=== PATIENT | male | born 1985 | race Caucasian/White ===

== ENCOUNTER 2020-03-04 16:07 | Outpatient (REF) | payer BC, SELFPAY | END 2020-03-04 16:08 | disposition home or self-care (01) | LOC: HO.LAB 16:07 | PROVIDERS: PCP Internal Medicine; Visit Provider Internal Medicine | DX: Z20.828 Contact with and (suspected) exposure to other viral communicable diseases (principal) | CPT/HCPCS: 36415; C9803; U0003 ==

== ENCOUNTER 2020-03-16 11:11 | Emergency (ER) | payer BC, SELFPAY ==
[2020-03-16 11:35] VITALS: BP 151/85; PULSE 90; RESP 18; TEMP 37.2; O2SAT 97; BMI 71.5
--- NOTE | 2020-03-16 11:40 | ED.URI ---
HPI - URI/Sore Throat General Chief Complaint: Upper Respiratory Symptoms Stated Complaint: bodyaches,cough Time Seen by Provider: 03/16/20 11:40 Source: patient Mode of arrival: ambulatory Limitations: no limitations History of Present Illness HPI Narrative: 35 yo male with no PMH here with cough, cold symptoms body aches x 1 day, here for COVID testing MD elicited complaint: cough and other (body aches ) Onset (ago): day(s) (1) Consistency: constant Severity: moderate Description of mucous: clear Able to tolerate fluids by mouth: Yes Exacerbating factors: nothing Relieving factors: nothing Associated symptoms: chills, myalgias, rhinorrhea and cough Treatments prior to arrival: none Related Data Allergies Allergy/AdvReac Type Severity Reaction Status Date / Time No Known Allergies Allergy Verified 03/16/20 11:35 [No Known Allergies*] Review of Systems Review of Systems: Constitutional : no Fever, positive Chills, positive fatigue, positive Malaise ENT/Mouth : positive sore throat, positive runny nose Eyes: No Discharge Cardiovascular : No Chest Pain, No SOB Respiratory : pos Cough, No Sputum Gastrointestinal : No Nausea, No Vomiting, No Diarrhea Genitourinary : No Dysuria, No Urinary Frequency Musculoskeletal : positive Myalgia Skin : No rash Neuro : No Headache PMFSH Past Medical History Attestation statement: The following information was validated with the patient. Medical History Healthy adolescent Healthy adult Social History Social History (Updated 03/16/20 @ 11:58 by Berta Salas DO) Smoking Status: Never smoker Advance Directives: No Advance Directives Information Provided: No Physical Exam Vital Signs: Vital Signs: Last Vital Signs Temp 99.0 F 03/16/20 11:35 Pulse 90 03/16/20 11:35 Resp 18 03/16/20 11:35 BP 151/85 H 03/16/20 11:35 Pulse Ox 97 03/16/20 11:35 Body Mass Index 71.5 Appearance: Alert. Oriented X3. No acute distress. Eyes: Pupils equal, round and reactive to light. ENT: Pharynx normal. Neck: Normal inspection. Neck supple. CVS: Normal heart rate and rhythm. Pulses normal. Respiratory: No respiratory distress. Breath sounds normal. Abdomen: Soft and nontender. Skin: Skin warm and dry. Normal skin color. Normal skin turgor. Extremities: No lower extremity edema. No calf ttp Neuro: Oriented X 3. No motor deficit. No sensory deficit. MDM - URI/Sore Throat MDM Narrative Medical decision making narrative: 35 yo male healthy here with URI symptoms - not toxic, clear lungs, 97% on RA - will test for COVID, overall not toxic, stable for DC Lab Data Labs: Lab Results 03/16/20 Range/Units 12:17 Coronavirus (PCR) POSITIVE A (Negative) Influenza Type A (PCR) NEGATIVE (Negative) Influenza Type B (PCR) NEGATIVE (Negative) RSV RNA Qual (PCR) NEGATIVE (Negative) Discharge Plan Discharge Clinical Impression: COVID-19 Patient Disposition: Home, Self-Care Instructions: COVID-19 (Coronavirus Disease 2019) (ED) Additional Instructions: return to ED for any worsening symptoms or concerns Stand Alone Forms: Work/School Release
[2020-03-16 13:10] LABS: Influenza A PCR NEGATIVE (Negative); Influenza B PCR NEGATIVE (Negative); Resp Syncy Virus RNA Qual PCR NEGATIVE (Negative); SARS COV2 PCR INHOUSE POSITIVE (Negative)
== END 2020-03-16 13:44 | disposition home or self-care (01) ==
PROVIDERS: Emergency Provider Emergency Medicine; PCP Internal Medicine
DX: U07.1 COVID-19 (principal)
CPT/HCPCS: 0241U; 36415; 99283

== ENCOUNTER 2020-03-27 10:46 | Outpatient (REF) | payer BC, SELFPAY ==
[2020-03-28 09:20] LABS: SARS COV2 IgG Positive (Negative)
== END 2020-03-27 10:47 | disposition home or self-care (01) ==
LOC: HO.LAB 10:46
PROVIDERS: PCP Internal Medicine; Visit Provider Internal Medicine
DX: U07.1 COVID-19 (principal)
CPT/HCPCS: 36415; 86769

== ENCOUNTER 2022-05-04 09:17 | Emergency (ER) | payer SELFPAY ==
--- NOTE | 2022-05-04 09:31 | ED_ITS ---
HPI - General Adult General Chief complaint: General Medical Stated complaint: Cough/Fever/Body aches Time Seen by Provider: 05/04/22 09:31 Source: patient Mode of arrival: ambulatory Limitations: no limitations History of Present Illness HPI narrative: Patient is a 37 year old assigned male at with no reported medical history presenting to the emergency department today with a cough and pain with urination. Patient states that he has had the cough intermittently but 2 days ago he started to have pain with urination. Patient denies any dizziness, lightheadedness, abdominal pain, nausea, vomiting, fever, chills, blurry vision, double vision, loss of vision, chest pain, difficulty breathing, shortness of breath, back pain, night sweats, increased urinary frequency, increased urinary urgency, blood in his urine or stool, syncope or a near syncopal episode, recent trauma or falls, bowel incontinence, bladder incontinence, bowel retention, bladder retention, or any other complaints at this time. Onset (ago): day(s) Severity: mild Severity scale (1-10): 2 Relieving factors: none Exacerbating factors: none Associated symptoms: denies other symptoms Treatments prior to arrival: none Related Data Previous Rx's Medication Instructions Recorded doxycycline hyclate 100 mg tablet 100 mg PO BID 7 days #14 tabs 05/04/22 Allergies Allergy/AdvReac Type Severity Reaction Status Date / Time No Known Allergies Allergy Verified 05/04/22 09:37 [No Known Allergies*] Review of Systems Constitutional: Constitutional: Reports no additional constitutional complaints, Denies chills, Denies fever(s) and Denies night sweats Eyes: Eyes: Reports no additional eye complaints, Denies blurry vision, Denies change in vision, Denies diplopia, Denies eye discharge, Denies loss of vision and Denies eye pain ENT: Denies dizziness Cardiovascular: Cardiovascular: Reports no additional cardiovascular complai nts, Denies chest pain, Denies lightheadedness, Denies Loss of Consciousness and Denies dyspnea Respiratory: Respiratory: Reports no additional respiratory complaints, Reports cough and Denies dyspnea Gastrointestinal: Gastrointestinal: Reports no additional gastrointestinal complaints, Denies abdominal pain, Denies melena, Denies hematochezia, Denies change in bowel habits and Denies change in stool character Genitourinary: Genitourinary: Reports no additional male genitourinary complaints, Denies hematuria, Denies oliguria, Denies difficulty urinating, Reports dysuria, Denies urinary frequency, Denies urinary hesitancy, Denies u rinary incontinence and Denies urinary urgency Musculoskeletal: Musculoskeletal: Reports no additional musculoskeletal complaints, Denies numbness and Denies tingling Neurologic: Denies dizziness, Denies loss of vision, Denies numbness and Denies tingling Psychiatric: Psychiatric: Reports no additional psychiatric complaints Endocrine: Endocrine: Reports no additional endocrine complaints Hematologic/Lymphatic: Hematologic/Lymphatic: Reports no additional hematologic/lymphatic complaints Allergic/Immunologic: Allergic/Immunologic: Reports no additional allergic/immunologic complaints [facility] Past Medical History Attestation statement: The following information was validated with the patient. Source: old records reviewed and nursing notes reviewed Medical History Healthy adolescent Healthy adult Surgical History History of left knee surgery Family History Family History Father Hypertension Mother No problems noted. Maternal Grandmother No problems noted. Maternal Grandfather Diabetes Son No problems noted. Daughter No problems noted. Daughter No problems noted. Paternal Grandfather Diabetes Social History Social History Alcohol intake: current Alcohol intake frequency: 0-2 drinks per day Alcohol type: beer Smoked in Last 30 Days: No Use of substances other than those prescribed or required for medical reasons: No Advance Directives: No Advance Directives Information Provided: Yes Physical Exam ED Vital Signs: Vital Signs - 24 hr 05/04/22 09:36 Temperature 98.9 F Pulse Rate 77 Respiratory Rate 18 Blood Pressure 155/79 H Pulse Oximetry 99 Oxygen Delivery Method Room Air BMI result Body Mass Index 32.4 Const General: cooperative, no acute distress, alert and awake Nutritional Appearance: well nourished Orientation/consciousness: patient oriented x3 Limitations: no limitations HENMT Head: Yes normal to inspection and Yes atraumatic Ears: hearing grossly normal bilaterally and external ears normal General nose exam: Normal external nose present, no nasal discharge noted and no epistaxis Face and sinus: Yes normal facial exam, No abrasion and No laceration Mouth: Normal oral and palatal mucosa present, no drooling and no muffled voice Eyes General: appearance normal, both eyes and all related structures Periorbital: periorbital findings normal Eyelids: Yes eyelids normal Conjunctivae: conjunctivae normal Pupils: Equal, round and reactive pupils present EOM: EOMs intact bilaterally Neck Neck: Yes normal visual inspection, Yes full ROM and Yes no lymphadenopathy Chest Chest palpation & inspection: normal inspection of the chest Resp Effort & Inspection: normal respiratory effort and able to speak in complete sentences Auscultation: clear to auscultation bilaterally Cardio Rate: regular rate Rhythm: regular rhythm GI Inspection: Yes normal to inspection Palpation (GI): Soft to palpation, not firm, nontender, no guarding and not rigid Neuro General: patient oriented x3 and moves all extremities Cranial nerves: Yes Equal, round and reactive pupils present Cognition (Neuro): normal cognition Motor exam (neuro): 5/5 motor strength present throughout Sensory Exam: Normal double simultaneous stimulation for sensation Coordination: [id number] test normal Extrem General: Yes normal to inspection, Yes full ROM and Yes capillary refill normal Psych Appearance: grossly normal Mental Status: mental status grossly normal Affect: normal affect Attitude: cooperative Thought process: Normal thought process present Thought content: Normal thought content present Insight: Good insight present (Psych) Medical Decision Making Medical Decision Making MDM Narrative: Patient is a 37 year old assigned male at with no reported medical history presenting to the emergency department today with an intermittent cough and painful urination. Patient's physical exam was unremarkable. Patient's urine showed WBC and leuks, given the patient's symptoms, will treat for STI vs. UTI. Patient's CT / NG is pending. Patient's COVID/RSV/Influenza test was negative. I explained my physical exam findings as well as all test results to the patient and the patient's . I answered all questions asked by the patient and the patient's . Patient was given IM Ceftriaxone while in the department. I stressed the importance of the patient taking his medication as prescribed. I stressed the importance of the patient following up with his primary care provider. I stressed the importance of the patient returning to the emergency department immediately if his symptoms were to worsen or if he were to develop any dizziness, shortness of breath, difficulty breathing, chest pain, blurry vision, loss of vision, nausea, vomiting, abdominal pain, fever, chills, back pain, or any other complaints. Patient and the patient's verbalized agreement and understanding with this treatment plan and discharge. Differential Diagnosis Differential Diagnoses: The differential diagnosis associated with the presentation includes dysuria, STI, UTI, viral illness Lab Data MDM Lab Attestation statement: I reviewed the patient's lab results. Labs: Lab Results 05/04/22 05/04/22 Range/Units 09:35 09:53 Urine Color ORANGE Urine Appearance Hazy Urine pH 6.0 (5.0-9.0) Ur Specific [place] 1.025 (1.005-1.025) Urine Protein 30 (1+) H (Neg-Trace) mg/dL Urine Glucose (UA) Negative (Negative) mg/dL Urine Ketones Trace (Negative) mg/dL Urine Blood Negative (Negative) Urine Nitrite Negative (Negative) Ur Leukocyte Esterase Trace H (Negative) Urine RBC 0-2 (0-2) /HPF Urine WBC >50 H (0-5) /HPF Ur Squamous Epith Cells 0-2 (0-2) /HPF Urine Bacteria None Seen (None Seen) Hyaline Casts 0-2 (0-2) /LPF Influenza Type A (PCR) NEGATIVE (Negative) Influenza Type B (PCR) NEGATIVE (Negative) RSV RNA Qual (PCR) NEGATIVE (Negative) SARS-CoV-2 RNA (RT-PCR) NEGATIVE (Negative) Independent Historian Clinical information obtained from an independent historian. History obtained from or confirmed by: Spouse Discharge Plan Discharge Clinical Impression: Dysuria, Viral illness Patient Disposition: Home, Self-Care Instructions: Dysuria (ED) Additional Instructions: Follow up with your primary care provider. Return to the emergency department immediately if your symptoms worsen or if you develop any dizziness, shortness of breath, difficulty breathing, chest pain, blurry vision, loss of vision, nausea, vomiting, abdominal pain, fever, chills, back pain, or any other complaints. Prescriptions: New doxycycline hyclate 100 mg tablet 100 mg PO BID 7 Days Qty: 14 0RF Referrals: Brittany Oden MD [Primary Care Provider] - Stand Alone Forms: Work/School Release Print Language: [place]
[2022-05-04 09:36] VITALS: BP 155/79; PULSE 77; RESP 18; TEMP 37.2; O2SAT 99; BMI 32.4
[2022-05-04 10:01] LABS: Appearance Urine Hazy; Color Urine ORANGE; Glucose Urine UA Negative (Negative); Leukocyte Esterase Urine Trace (Negative); Nitrite Urine Negative (Negative); Specific Gravity - Urine 1.025 (1.005-1.025); UMIC TRIGGER UACC YES; Urine Blood Negative (Negative); Urine Ketones Trace mg/dL (Negative); Urine Protein 30 (1+) mg/dL (Neg-Trace)
[2022-05-04 10:10] LABS: Bacteria Urine None Seen (None Seen); Hyaline Casts Urine 0-2 /LPF (0-2); RBC Urine 0-2 /HPF (0-2); Squamous Epithelial Cell Urine 0-2 /HPF (0-2); UACC Culture Trigger YES; WBC Urine >50 /HPF (0-5)
[2022-05-04 10:22] LABS: Influenza A PCR NEGATIVE (Negative); Influenza B PCR NEGATIVE (Negative); Resp Syncy Virus RNA Qual PCR NEGATIVE (Negative); SARS COV2 PCR INHOUSE NEGATIVE (Negative)
[2022-05-04] MEDS: cefTRIAXone sodium 500 MG, Lidocaine HCl 1 % MPF 1 ML IM (11:12)
[2022-05-04 11:45] LABS: CT PCR NOT DETECTED (Not Detect.); NG PCR NOT DETECTED (Not Detect.)
== END 2022-05-04 11:18 | disposition home or self-care (01) ==
PROVIDERS: Physician Assistant Medical; Emergency Provider Emergency Medicine Emergency Medical Services; PCP Internal Medicine
DX: B34.9 Viral infection, unspecified (principal); R30.0 Dysuria; D72.829 Elevated white blood cell count, unspecified; Z20.822 Contact with and (suspected) exposure to COVID-19; Z20.828 Contact with and (suspected) exposure to other viral communicable diseases
CPT/HCPCS: 0241U; 0353U; 81001; 81003; 87086; 87088; 87186; 96372; 99283; 99284; J0696

== ENCOUNTER 2023-08-10 13:04 | Outpatient (AMB) | payer BC, SELFPAY ==
--- NOTE | 2023-08-10 12:50 | A.OFFPC_ITS ---
Vital Signs 08/10/23 13:17 Height 5 ft 4.65 in Weight 204 lb BMI 34.3 BP 152/90 H Blood Pressure Location Lt brachial Position Sitting Pulse 88 Pulse Source Pulse Oximeter Temp 98.1 F Temp Source Oral Pulse Oximetry (%) 98 Oxygen Delivery Method Room Air Intake Visit Reasons: Requesting Physical Exam Intake Note: New patient visit Special Education Teaching Assistant Required: No Accompanied by: Spouse Allergies No Known Allergies [No Known Allergies*] Allergy (Verified 08/10/23 13:12) Tobacco use date assessed: 08/10/23 Dental Screening Dental Screen Date: 08/10/23 Did you have a dental visit in the last 12 months?: No Did you have a dental problem in the last 6 months where you did not have access to dental care?: No Was dental information given to patient?: Patient declined HPI Requesting Physical Exam HPI Details Patient is a 38-year-old male who presents today for a new patient visit and for a physical exam. He does speak Polish primarily but understands and speaks Hungarian with only minimal need for interpretation however, furnace packer was used today. He denies any significant past medical history. CV: Bp today in the office is 152/90. He states for the last year or so it has been elevated like this at urgent cares. No chest pain or shortness a breath. Uro: He does complain today of some erectile dysfunction and states that he is worried about his prostate. He states that he urinates frequently in wonders if he could have a prostate issue or diabetes. She does not really feel very thirsty. The increased urination has been going on for the last 6 months or so. Has a hard time maintaining an erection but does not have a hard time getting 1. He says that his libido is normal. No hematuria, discharge, or dysuria. No family history of prostate cancer. His is with him today and states that he snores a lot and gets up a lot throughout the night. He states that he is tired during the day. He drinks 1 cup of caffeine during the day to stay awake. He works 7 days a week and does have some increased stress at work. Special Education Teaching Assistant: Erin [id number] [facility] Medical History (Updated 08/10/23 @ 13:58 by Angely Roceh PA-C) COVID-19 Healthy adult Healthy adolescent Surgical History History of left knee surgery Family History (Updated 08/10/23 @ 13:18 by Aishwarya Dhillon CMA) Father HTN (hypertension) Mother No problems noted. Maternal Grandmother No problems noted. Maternal Grandfather Diabetes Son No problems noted. Daughter No problems noted. Daughter No problems noted. Paternal Grandfather Diabetes Social History (Updated 08/10/23 @ 13:15 by Aishwarya Dhillon CMA) Housing: Apartment Alcohol intake: current Alcohol intake frequency: 0-2 drinks per day Alcohol type: beer Patient Tobacco Use Status: Never used Tobacco e-Cigarette/Vaping Use: Never Used Second Hand Smoke Exposure: No service: No Current occupational status: employed Current occupation: [employer] Current occupational exposures/hazards: No Cognitive needs: No Hearing needs: No Vision needs: No Questionnaire PHQ-9 Over the last 2 weeks, how often have you been bothered by any of the following problems? 1. Little interest or pleasure in doing things: not at all 2. Feeling down, depressed, or hopeless: not at all 3. Trouble falling or staying asleep, or sleeping too much: not at all 4. Feeling tired or having little energy: not at all 5. Poor appetite or overeating: not at all 6. Feeling bad about yourself - or that you are a failure or have let yourself or your family down: not at all 7. Trouble concentrating on things, such as reading the newspaper or watching television: not at all 8. Moving or speaking so slowly that other people could have noticed. Or the opposite - being so fidgety or restless that you have been moving around a lot more than usual: not at all 9. Thoughts that you would be better off or of hurting yourself in some way: not at all Total score: 0 Depression Screening Interpretation: Negative Depression Screening Done: Yes 20269 - PHQ-9 Billing: Yes Source: Developed by Drs. Conor Quiroga, Milla Dudley, Garcia Ramsay and colleagues, with an educational melinda from [employer] ([employer]). Thrive Questionnaire Date Thrive assessed: 08/10/23 I am a: Patient What is your living situation today?: I have a steady place to live Within the past 12 months, did the food you bought not last and you didn't have the money to get more?: Never true Within the past 12 months, did you worry whether your food would run out before you got money to buy more?: Never true Do you have trouble paying for medicines?: No Do you have trouble getting transportation to medical appointments?: No Do you have trouble paying your heating and electricity bill?: No Do you have trouble taking care of your child, family member or friend?: No Do you have trouble with day-to-day activities such as bathing, preparing meals, shopping, managing finances, etc.?: No Are you currently unemployed and looking for a job?: No Are you interested in more education?: No Please select the resources that you would like help with: None Currently or been in a relationship where the following occur: no concerns reported THRIVE Score: 0 AUDIT C Alcohol Use Questionnaire (AUDIT-C) 1. How often do you have a drink containing alcohol?: 4 or more times a week 2. How many drinks containing alcohol do you have on a typical day when you are drinking?: 7 to 9 3. How often do you have six or more drinks on one occasion?: Daily or almost daily Total Score: 11 Score Reviewed/Action Taken: Yes LORETTA-7 AMB Questionnaire LROETTA-7 Date LORETTA - 7 assessed: 08/10/23 Feeling nervous, anxious, or on edge: 0 = Not at all Not being able to stop or control worryin = Not at all Worrying too much about different things: 0 = Not at all Trouble relaxin = Not at all Being so restless that it is hard to sit still: 0 = Not at all Becoming easily annoyed or irritable: 0 = Not at all Feeling afraid as if something awful might happen: 0 = Not at all Total LORETTA-7 score (0-4 normal; 5-9 mild; 10-14 moderate; 15-21 severe): 0 Source: Developed by Drs. Conor Quiroga, Milla Dudley, Garcia Ramsay and colleagues, with an educational melinda from [employer] ([employer]). LORETTA-7 Assessment Billing LORETTA-7 Assessment Tool: LORETTA-7 Assessment 40124 Physical exam (Primary Care) Vital Signs: Last Vital Signs Temp 98.1 F 08/10/23 13:17 Pulse 88 08/10/23 13:17 BP 152/90 H 08/10/23 13:17 Pulse Ox 98 08/10/23 13:17 Oxygen Delivery Method Room Air 08/10/23 13:17 BMI result Body Mass Index 34.3 BMI Assessment/Plan discussion: High BMI High, discussed plan: lifestyle, weight reduction, dietary, physical activity and alcohol moderation Tobacco/Smoking Status: Tobacco use Status Tobacco use date assessed 08/10/23 08/10/23 13:20 Patient Tobacco Use Status Never used Tobacco 08/10/23 13:20 e-Cigarette/Vaping Use Never Used 08/10/23 13:20 Depression Screening Interpretation: Negative Currently or been in a relationship where the following occur: no concerns reported Const Orientation/consciousness: patient oriented x3 HENMT Ears: hearing grossly normal bilaterally and TM's normal bilaterally General nose exam: No nasal polyps present Face and sinus: Yes sinuses nontender Mouth: Normal oral and palatal mucosa present Eyes Pupils: Equal, round and reactive pupils present EOM: EOMs intact bilaterally Neck Neck: Yes full ROM and Yes no lymphadenopathy Thyroid: Thyroid normal Chest Chest palpation & inspection: normal inspection of the chest Resp Auscultation: clear to auscultation bilaterally Cardio Rate: regular rate Rhythm: regular rhythm Heart sounds: S1 normal heart sound present and S2 normal heart sound present Peripheral pulses: Peripheral pulses 2+ throughout GI Other: Soft, nontender Auscultation: normal bowel sounds General: Yes no CVA tenderness Back/Spine/Pelvis Other: Nontender Back: no CVA tenderness Skin General skin exam: no rashes or lesions noted Neuro General: patient oriented x3, gait normal, CN's II-XI intact bilaterally and deep tendon reflexes 2+ bilaterally Cranial nerves: Yes Equal, round and reactive pupils present Motor exam (neuro): 5/5 motor strength present throughout Sensory Exam: double simultaneous stimulation for sensation normal Coordination: [id number]-[id number] test normal and Romberg test negative Extrem General: Yes normal to inspection and Yes full ROM Psych Affect: normal affect Attitude: cooperative Thought process: Normal thought process present Thought content: Normal thought content present Insight: Good insight present (Psych) Judgement: Good judgement present (Psych) Assessment and Plan Assessment & Plan (1) Routine general medical examination at a health care facility: Code(s): Z00.00 - Encounter for general adult medical examination without abnormal findings Plan: Health maintenance reviewed (2) Erectile dysfunction: Code(s): N52.9 - Male erectile dysfunction, unspecified Plan: Labs ordered today. We will follow up pending test results. Referred to Lani priest. (3) HTN (hypertension): Code(s): I10 - Essential (primary) hypertension Qualifiers: Hypertension type: primary hypertension Qualified Code(s): I10 - Essential (primary) hypertension Plan: We will start amlodipine. Discussed risks and benefits and adverse effects of this medication. Advised patient to follow up in 3-4 weeks to have blood pressure rechecked. We discussed dietary changes, need for sleep study and reducing his alcohol intake (4) Snoring: Code(s): R06.83 - Snoring Plan: Discussed avoiding ETOH. Sleep study ordered. I have encouraged weight loss. (5) Fatigue: Code(s): R53.83 - Other fatigue Plan: As above. Labs ordered. (6) Urinary frequency: Code(s): R35.0 - Frequency of micturition Plan: Labs and urine ordered Orders: Orders Vitamin B12 and Folate Today I10 - Essential (primary) hypertension, N52.9 - Male erectile dysfunction, unspecified, R06.83 - Snoring, R35.0 - Frequency of micturition, R53.83 - Other fatigue UA CC w/rflx Micro + Cult Today I10 - Essential (primary) hypertension, N52.9 - Male erectile dysfunction, unspecified, R06.83 - Snoring, R35.0 - Frequency of micturition, R53.83 - Other fatigue RT home sleep study Today I10 - Essential (primary) hypertension, R06.83 - Snoring, R53.83 - Other fatigue Comprehensive Frost. Panel Fast Today I10 - Essential (primary) hypertension, N52.9 - Male erectile dysfunction, unspecified, R06.83 - Snoring, R35.0 - Frequency of micturition, R53.83 - Other fatigue Complete Blood Count Auto Diff Today I10 - Essential (primary) hypertension, N52.9 - Male erectile dysfunction, unspecified, R06.83 - Snoring, R35.0 - Frequency of micturition, R53.83 - Other fatigue Lipid Panel Today I10 - Essential (primary) hypertension, N52.9 - Male erectile dysfunction, unspecified, R06.83 - Snoring, R35.0 - Frequency of micturition, R53.83 - Other fatigue TSH reflex Free T4 Today I10 - Essential (primary) hypertension, N52.9 - Male erectile dysfunction, unspecified, R06.83 - Snoring, R35.0 - Frequency of micturition, R53.83 - Other fatigue PSA, Ultra Sensitive Today I10 - Essential (primary) hypertension, N52.9 - Male erectile dysfunction, unspecified, R06.09 - Other forms of dyspnea, R06.83 - Snoring, R35.0 - Frequency of micturition, R53.83 - Other fatigue Hemoglobin A1c Today I10 - Essential (primary) hypertension, N52.9 - Male erectile dysfunction, unspecified, R06.83 - Snoring, R35.0 - Frequency of micturition, R53.83 - Other fatigue Referrals Urology Referral N52.9 - Male erectile dysfunction, unspecified Medications: New amlodipine 5 mg PO DAILY 90 tabs 1RF Coding Level of Care Code New Pt Prev Care 18-39yr(91639 Diagnoses Routine general medical examination at a health care facility Z00.00 Erectile dysfunction N52.9 Primary hypertension I10 Hypertension type: primary hypertension Snoring R06.83 Fatigue R53.83 Urinary frequency R35.0 Additional Codes LORETTA-7 Assessment Billing - LORETTA-7 Assessment Tool: LORETTA-7 Assessment [id number] ([id number])
[2023-08-10 13:17] VITALS: BP 152/90; PULSE 88; TEMP 36.7; O2SAT 98; BMI 34.3
== END 2023-08-10 13:48 | disposition home or self-care (01) ==
PROVIDERS: PCP Family Medicine; Visit Provider Physician Assistant
DX: Z00.00 Encounter for general adult medical examination without abnormal findings (principal); N52.9 Male erectile dysfunction, unspecified; I10 Essential (primary) hypertension; R06.83 Snoring; R53.83 Other fatigue; R35.0 Frequency of micturition
CPT/HCPCS: 99385

== ENCOUNTER 2023-08-15 07:13 | Outpatient (REF) | payer BC, SELFPAY ==
[2023-08-15 07:23] LABS: MANUAL DIFF FLAG NO
[2023-08-15 08:12] LABS: Basophils Absolute Auto 0.1 X10*3/uL (0.0-0.2); Basophils Percent Auto 1.1 % (0-2); Eosinophils Absolute Auto 0.7 X10*3/uL (0.0-0.4); Eosinophils Percent Auto 6.8 % (0-4); Hematocrit 45.7 % (42.0-52.0); Hemoglobin 15.5 g/dl (14.0-18.0); Imm Gran Abs Auto 0.16 X10*3/uL (0.00-0.03); Imm Gran Pct Auto 1.6 % (0.0-0.4); Lymphocytes Absolute Auto 2.5 X10*3/uL (1.2-4.9); Lymphocytes Percent Auto 24.4 % (20-40); Mean Corpuscular HGB Conc 33.9 g/dl (31.0-36.0); Mean Corpuscular Hemoglobin 30.6 pg (27.0-33.0); Mean Corpuscular Volume 90.1 fL (80.0-98.0); Mean Platelet Volume 9.4 fL (9.4-12.4); Neutrophils Absolute Auto 5.6 x10*3/uL (2.0-8.3); Neutrophils Percent Auto 56.1 % (45-73); Platelet Count 414 X10*3/uL (160-400); Red Blood Count 5.07 X10*6/uL (4.60-5.80)
[2023-08-15 08:15] LABS: Appearance Urine Clear; Color Urine Yellow; Glucose Urine UA Negative (Negative); Leukocyte Esterase Urine Negative (Negative); Nitrite Urine Negative (Negative); PH 5.5 (5.0-9.0); Specific Gravity - Urine 1.025 (1.005-1.025); Urine Blood Negative (Negative); Urine Ketones Negative (Negative); Urine Protein Negative (Neg-Trace)
[2023-08-15 08:26] LABS: Estimated Average Glucose 100 mg/dL; Hemoglobin A1c % 5.1 % (<6.0)
[2023-08-15 09:13] LABS: Alanine Aminotransferase 50 U/L (0-40); Albumin Level 4.5 g/dL (3.5-5.0); Alkaline Phosphatase 60 U/L (39-117); Anion Gap 14 (12-20); Aspartate Amino Transferase 40 U/L (5-37); Bilirubin Total 2.2 mg/dL (0.0-1.0); Blood Urea Nitrogen 13 mg/dL (9-16); Calcium 9.3 mg/dL (8.4-10.2); Carbon Dioxide 23 mmol/L (22-29); Chloride 107 mmol/L (96-108); Cholesterol 197 mg/dL (<200); Estimated Glomerular Filt Rate > 60; Glucose Fasting 97 mg/dL (60-99); HDL Cholesterol 60 mg/dL (>40); LDL Cholesterol Calculated 106 mg/dL (<100); Potassium 3.6 mmol/L (3.3-5.1); Sodium 140 mmol/L (135-145); Total Protein 7.8 g/dL (6.5-8.0); Triglycerides 157 mg/dL (<150)
[2023-08-15 09:28] LABS: TSH reflex Free T4 1.12 uIU/mL (0.32-4.0)
[2023-08-15 09:34] LABS: Folate 11.5 ng/mL (> or = 4.0); Vitamin B12 659 pg/mL (200-900)
== END 2023-08-15 07:14 | disposition home or self-care (01) ==
LOC: HO.LAB 07:13
PROVIDERS: PCP Physician Assistant; Visit Provider Physician Assistant
DX: R53.83 Other fatigue (principal); R06.83 Snoring; I10 Essential (primary) hypertension; N52.9 Male erectile dysfunction, unspecified; R35.0 Frequency of micturition; R06.09 Other forms of dyspnea; Z12.5 Encounter for screening for malignant neoplasm of prostate; Z13.1 Encounter for screening for diabetes mellitus
CPT/HCPCS: 36415; 80053; 80061; 81003; 82607; 82746; 83036; 84153; 84443; 85025

== ENCOUNTER 2023-09-07 08:31 | Outpatient (AMB) | payer BC, SELFPAY ==
[2023-09-07 08:43] VITALS: BP 132/68; PULSE 73; RESP 14; O2SAT 99; BMI 33.7
--- NOTE | 2023-09-07 08:43 | A.OFFPC_ITS ---
Vital Signs 09/07/23 08:43 Height 5 ft 4.65 in Weight 200 lb 4 oz BMI 33.7 BP 132/68 Blood Pressure Location Lt brachial Position Sitting Respiration 14 Pulse 73 Pulse Source Pulse Oximeter Pulse Oximetry (%) 99 Oxygen Delivery Method Room Air Intake Visit Reasons: bp f/u Intake Note: Follow up Police Or Patrol Park Officer Required: No Allergies No Known Allergies [No Known Allergies*] Allergy (Verified 09/07/23 08:43) Tobacco use date assessed: 08/10/23 Dental Screening Dental Screen Date: 08/10/23 HPI bp f/u HPI Details Patient is a 38-year-old male who presents today for a follow up. He does speak English primarily but understands and speaks Citizen [place] with only minimal need for interpretation. He declines tar man services today. His is present and speaks Citizen [place] and English. Paperwork signed. CV: Bp today in the office is 132/68. He was started at last visit on amlodipine. He states he is tolerating it well. He states that he has not yet heard about his sleep study. GI: He does admit to drinking 8 beers a night x years. He states that he can go a day or 2 without drinking alcohol and does not have any withdrawal symptoms. He states that it has just become a routine for him. He does not think he needs help with this. I did order an abdominal ultrasound and repeat labs. He states that he has not heard about the ultrasound and we will get the labs done today. Uro: He does complain today of some erectile dysfunction. He is seeing urology 09/17. We did discuss the possibility that the alcohol intake is also affecting the erectile dysfunction. [facility] Medical History (Updated 09/07/23 @ 10:29 by Angely Roche PA-C) Habitual alcohol use COVID-19 Healthy adult Healthy adolescent Surgical History History of left knee surgery Family History (Updated 08/10/23 @ 13:18 by Aishwarya Dhillon CMA) Father HTN (hypertension) Mother No problems noted. Maternal Grandmother No problems noted. Maternal Grandfather Diabetes Son No problems noted. Daughter No problems noted. Daughter No problems noted. Paternal Grandfather Diabetes Social History (Updated 08/10/23 @ 13:15 by Aishwarya Dhillon CMA) Housing: Apartment Alcohol intake: current Alcohol intake frequency: 0-2 drinks per day Alcohol type: beer Patient Tobacco Use Status: Never used Tobacco e-Cigarette/Vaping Use: Never Used Second Hand Smoke Exposure: No service: No Current occupational status: employed Current occupation: [employer] Current occupational exposures/hazards: No Cognitive needs: No Hearing needs: No Vision needs: No Questionnaire Thrive Questionnaire Date Thrive assessed: 08/10/23 LORETTA-7 AMB Questionnaire LORETTA-7 Date LORETTA - 7 assessed: 08/10/23 Source: Developed by Drs. Conor Quiroga, Milla Dudley, Garcia Ramsay and colleagues, with an educational melinda from [employer]. Physical exam (Primary Care) Vital Signs: Last Vital Signs Pulse 73 09/07/23 08:43 Resp 14 09/07/23 08:43 BP 132/68 09/07/23 08:43 Pulse Ox 99 09/07/23 08:43 Oxygen Delivery Method Room Air 09/07/23 08:43 BMI result Body Mass Index 33.7 Tobacco/Smoking Status: Tobacco use Status Tobacco use date assessed 08/10/23 09/07/23 08:45 Patient Tobacco Use Status Never used Tobacco 09/07/23 08:45 e-Cigarette/Vaping Use Never Used 09/07/23 08:45 Thrive Assessment: Date of Thrive Assessment Date Thrive assessed 08/10/23 09/07/23 08:45 Const Orientation/consciousness: patient oriented x3 HENMT Ears: hearing grossly normal bilaterally Neck Thyroid: Thyroid normal Lymphatic: no lymphadenopathy noted Resp Auscultation: clear to auscultation bilaterally Cardio Rate: regular rate Rhythm: regular rhythm Heart sounds: S1 normal heart sound present and S2 normal heart sound present GI Inspection: Yes normal to inspection Palpation (GI): Soft to palpation and Other GI palpation findings present (nontender, no cva tenderness) Auscultation: normoactive bowel sounds Rectal Exam - Male: Yes deferred Skin General skin exam: no rashes or lesions noted Neuro General: patient oriented x3, gait normal and no focal motor deficits Results Reviewed Results Reviewed: Laboratory Tests 08/15/23 07:21 Total Bilirubin 2.2 H AST 40 H ALT 50 H Triglycerides 157 H Cholesterol 197 LDL Cholesterol, Calc 106 H HDL Cholesterol 60 PSA Ultra-Sensitive 0.70 Vitamin B12 659 Folate 11.5 TSH 1.12 Assessment and Plan Assessment & Plan (1) Elevated LFTs: Code(s): R79.89 - Other specified abnormal findings of blood chemistry Plan: We discussed the possibility of this being related to his alcohol use. He is going to cut back/stopped drinking. Does not want any services for this. He does understand that there is a risk with cutting out alcohol cold [place] including increased risk of seizures/. He feels comfortable with this as he has never had withdrawal symptoms. I did send a message regarding the ultrasound to make sure that this gets booked. We will check labs today. We will follow up in a couple of months for reassessment. Sooner if needed. (2) HTN (hypertension): Code(s): I10 - Essential (primary) hypertension Qualifiers: Hypertension type: primary hypertension Qualified Code(s): I10 - Essential (primary) hypertension Plan: Continue current regimen. (3) Habitual alcohol use: Code(s): F10.90 - Alcohol use, unspecified, uncomplicated Plan: Discussed that this is likely contributing to multiple problems including elevated blood pressure, poor sleep, his liver enzymes etc.. (4) Snoring: Code(s): R06.83 - Snoring Plan: Sleep study was ordered. Message sent regarding this. Coding Level of Care Code Est Pt Level 4 (83482) Complex EM visit Add On G2211 Diagnoses Elevated LFTs R79.89 Primary hypertension I10 Hypertension type: primary hypertension Habitual alcohol use F10.90 Snoring R06.83
== END 2023-09-07 09:13 | disposition home or self-care (01) ==
PROVIDERS: PCP Family Medicine; Visit Provider Physician Assistant
DX: R79.89 Other specified abnormal findings of blood chemistry (principal); I10 Essential (primary) hypertension; F10.90 Alcohol use, unspecified, uncomplicated; R06.83 Snoring
CPT/HCPCS: 99214

== ENCOUNTER 2023-09-07 09:18 | Outpatient (REF) | payer BC, SELFPAY ==
[2023-09-07 11:33] LABS: MANUAL DIFF FLAG NO
[2023-09-07 11:41] LABS: Basophils Absolute Auto 0.1 X10*3/uL (0.0-0.2); Eosinophils Absolute Auto 0.6 X10*3/uL (0.0-0.4); Eosinophils Percent Auto 6.6 % (0-4); Hematocrit 44.4 % (42.0-52.0); Hemoglobin 14.8 g/dl (14.0-18.0); Imm Gran Pct Auto 1.2 % (0.0-0.4); Lymphocytes Absolute Auto 1.7 X10*3/uL (1.2-4.9); Lymphocytes Percent Auto 19.5 % (20-40); Mean Corpuscular HGB Conc 33.3 g/dl (31.0-36.0); Mean Corpuscular Hemoglobin 30.5 pg (27.0-33.0); Mean Corpuscular Volume 91.5 fL (80.0-98.0); Mean Platelet Volume 9.6 fL (9.4-12.4); Monocytes Absolute Auto 0.7 X10*3/uL (0.1-1.2); Monocytes Percent Auto 8.3 % (2-11); Neutrophils Absolute Auto 5.4 x10*3/uL (2.0-8.3); Neutrophils Percent Auto 63.4 % (45-73); Platelet Count 407 X10*3/uL (160-400); Red Blood Count 4.85 X10*6/uL (4.60-5.80); Red Cell Distribution Width 11.9 % (11.0-16.0); White Blood Count 8.6 X10*3/uL (4.8-10.8)
[2023-09-07 12:21] LABS: Alanine Aminotransferase 43 U/L (0-40); Albumin Level 4.3 g/dL (3.5-5.0); Alkaline Phosphatase 67 U/L (39-117); Aspartate Amino Transferase 27 U/L (5-37); Bilirubin Direct 0.4 mg/dL (0.0-0.5); Bilirubin Total 1.6 mg/dL (0.0-1.0); Gamma Glutamyl Transpeptidase 65 U/L (11-51); Total Protein 7.5 g/dL (6.5-8.0)
[2023-09-07 12:40] LABS: Hepatitis A Antibody IgG Nonreactive (Nonreactive); ~Hepatitis A Antibody IgG 0.59 S/CO (0.00-0.99)
[2023-09-07 12:41] LABS: ~HepC Num1 0.45 S/CO (0.00-0.79); ~Hepatitis B Surface Antibody REACTIVE (Nonreactive); ~Hepatitis C Antibody Nonreactive (Nonreactive)
== END 2023-09-07 09:19 | disposition home or self-care (01) ==
LOC: HO.WFDLDS 09:18
PROVIDERS: Visit Provider Physician Assistant
DX: R79.89 Other specified abnormal findings of blood chemistry (principal); R94.5 Abnormal results of liver function studies
CPT/HCPCS: 36415; 80076; 82977; 85025; 86706; 86708; 86803

== ENCOUNTER 2023-11-16 09:21 | Outpatient (AMB) | payer BC, SELFPAY ==
--- NOTE | 2023-11-16 09:28 | A.OFFPC_ITS ---
Vital Signs 11/16/23 09:29 Height 5 ft 4 in Weight 204 lb 2 oz BMI 35.0 BP 130/70 Blood Pressure Location Rt brachial Position Sitting Respiration 12 Pulse 89 Pulse Source Pulse Oximeter Temp 97.9 F Temp Source Tympanic Pulse Oximetry (%) 98 Oxygen Delivery Method Room Air Intake Visit Reasons: lab recheck, bp check Intake Note: lab review and b/p check Allergies No Known Allergies [No Known Allergies*] Allergy (Verified 11/16/23 09:28) Tobacco use date assessed: 08/10/23 Dental Screening Dental Screen Date: 08/10/23 HPI lab recheck, bp check HPI Details Patient?presents?for?follow- up?of?elevated?liver?enzymes?and?hypertension. Patient?was?started?on?amlodipine?at?a prior?visit?and blood?pressure?is?now?in?controlled?range. Liver?enzymes?have?been?elevated. Patient?notes?that?he?drinks?about?5?or?6?beers?per?evening. Patient?does?not?feel?that?he?has?a?need?to?drink?this?much and?that?he?could?decrease?this. At?his?last?visit,?his?PCP?had?ordered?a?liver?ultrasound?and?also repeat?liver?enzymes. He?has?not?gotten?his?labs? drawn?again?yet?and?he?says?no?one?has?contacted?him?regarding?liver?ultrasound. [facility] Medical History (Updated 09/07/23 @ 10:29 by Angely Roche PA-C) Habitual alcohol use COVID-19 Healthy adult Healthy adolescent Surgical History History of left knee surgery Family History (Updated 08/10/23 @ 13:18 by Aishwarya Dhillon CMA) Father HTN (hypertension) Mother No problems noted. Maternal Grandmother No problems noted. Maternal Grandfather Diabetes Son No problems noted. Daughter No problems noted. Daughter No problems noted. Paternal Grandfather Diabetes Social History (Updated 08/10/23 @ 13:15 by Aishwarya Dhillon CMA) Housing: Apartment Alcohol intake: current Alcohol intake frequency: 0-2 drinks per day Alcohol type: beer Patient Tobacco Use Status: Never used Tobacco e-Cigarette/Vaping Use: Never Used Second Hand Smoke Exposure: No service: No Current occupational status: employed Current occupation: [employer] Current occupational exposures/hazards: No Cognitive needs: No Hearing needs: No Vision needs: No Questionnaire Thrive Questionnaire Date Thrive assessed: 08/10/23 LORETTA-7 AMB Questionnaire LORETTA-7 Date LORETTA - 7 assessed: 08/10/23 Source: Developed by Drs. Conor Quiroga, Milla Dudley, Garcia Ramsay and colleagues, with an educational melinda from [employer]. Review of Systems Const Denies chills, Denies fatigue, Denies fever(s), Denies headache(s) and Denies weakness ENT Denies dizziness and Denies headache(s) Card Denies chest pain, Denies lightheadedness, Denies dyspnea and Denies other (Palpitations) Resp Denies cough, Denies dyspnea, Denies wheezing and Denies other ( shortness of breath) Musc Denies numbness and Denies tingling Neuro Denies dizziness, Denies headache(s), Denies numbness, Denies tingling, Denies paresthesias and Denies weakness Psych Denies anxiety and Denies depression Endo Denies fatigue Aller/Immun Denies wheezing Physical exam (Primary Care) Vital Signs: Last Vital Signs Temp 97.9 F 11/16/23 09:29 Pulse 89 11/16/23 09:29 Resp 12 11/16/23 09:29 BP 130/70 11/16/23 09:29 Pulse Ox 98 11/16/23 09:29 Oxygen Delivery Method Room Air 11/16/23 09:29 BMI result Body Mass Index 35.0 Tobacco/Smoking Status: Tobacco use Status Tobacco use date assessed 08/10/23 11/16/23 09:32 Patient Tobacco Use Status Never used Tobacco 11/16/23 09:32 e-Cigarette/Vaping Use Never Used 11/16/23 09:32 Thrive Assessment: Date of Thrive Assessment Date Thrive assessed 08/10/23 11/16/23 09:32 Const General: no acute distress and well developed Nutritional Appearance: well nourished Orientation/consciousness: patient oriented x3 HENMT Head: Yes normocephalic and Yes atraumatic Eyes General: appearance normal, both eyes and all related structures Pupils: Equal, round and reactive pupils present EOM: EOMs intact bilaterally Resp Effort & Inspection: normal respiratory effort Auscultation: clear to auscultation bilaterally Cardio Rate: regular rate Rhythm: regular rhythm Heart sounds: S1 normal heart sound present, S2 normal heart sound present, no gallops, no murmurs and no rubs Neuro General: patient oriented x3 and gait normal Cranial nerves: Yes Equal, round and reactive pupils present Psych Affect: normal affect Assessment and Plan Assessment & Plan (1) Elevated LFTs: Code(s): R79.89 - Other specified abnormal findings of blood chemistry Plan: Elevated?liver?enzymes?and?patient?notes?that?he?drinks?about?5?or?6?beers?per?e vening. He?does?not?feel?that?he?has?not?need?to?drink?that?much. Advised?him?to?wean?this?down?with?a?goal?of?eventually?stopping. Increase?water/hydration Work?at?weight?loss. Avoid?Tylenol. Patient?has?not?gotten?his?blood?redrawn?yet?but?it?would?likely?not?be?signific antly ?changed?as?he?has?not?made?lifestyle?changes.??Will?have?patient?work?on?these? lifestyle?changes?for?the?next?6?weeks?and?then?he?will?get?his?blood?drawn. He?will?follow-up?with?his?PCP?in?a?couple?of?months (2) HTN (hypertension): Code(s): I10 - Essential (primary) hypertension Qualifiers: Hypertension type: primary hypertension Qualified Code(s): I10 - Essential (primary) hypertension Plan: Blood?pressure?is?controlled.??Goal?is?less?than?140/90 Continue?current?medication Encouraged?weight?loss Coding Level of Care Code Est Pt Level 3 (25207) Diagnoses Elevated LFTs R79.89 Primary hypertension I10 Hypertension type: primary hypertension
[2023-11-16 09:29] VITALS: BP 130/70; PULSE 89; RESP 12; TEMP 36.6; O2SAT 98; BMI 35.0
== END 2023-11-16 09:55 | disposition home or self-care (01) ==
PROVIDERS: PCP Physician Assistant; Visit Provider Family Medicine
DX: R79.89 Other specified abnormal findings of blood chemistry (principal); I10 Essential (primary) hypertension

== ENCOUNTER → 2023-11-16 09:21 | Outpatient (BNVA) | payer BC, SELFPAY | PROVIDERS: PCP Physician Assistant; Visit Provider Family Medicine | DX: R79.89 Other specified abnormal findings of blood chemistry (principal); I10 Essential (primary) hypertension ==

== ENCOUNTER 2024-08-25 08:35 | Emergency (ER) | payer BC, SELFPAY ==
[2024-08-25 08:37] VITALS: BP 138/86; PULSE 79; RESP 16; TEMP 36.9; O2SAT 98; BMI 33.3
[2024-08-25] MEDS: Amoxicillin/Potassium Clav 875 MG TABLET PO (09:13)
[2024-08-25 09:24] VITALS: BP 148/63; PULSE 64; RESP 15; TEMP 37; O2SAT 100
--- NOTE | 2024-08-25 09:29 | ED.EAR ---
HPI - Ear Problem General Chief complaint: Ear Problems Stated complaint: ear pain Time Seen by Provider: 08/25/24 08:46 Source: patient Mode of arrival: ambulatory Limitations: no limitations History of Present Illness ED Provider: DR. Carpio HPI Narrative: 39-year-old male came in for evaluation of left ear pain since yesterday, patient for the last 3 days been having runny nose, bilateral eye discharge with eye redness, nonproductive cough No sick contacts, no fever, no chills. Related Data Previous Rx's ?Medication ?Instructions ?Recorded amlodipine 5 mg tablet 5 mg PO DAILY #90 tabs 02/05/24 amoxicillin 875 mg-potassium 1 tab PO BID #14 tabs 08/25/24 clavulanate 125 mg tablet erythromycin 5 mg/gram (0.5 %) eye 1 appl ophthalmic (eye) TID #50 08/25/24 ointment grams Allergies Allergy/AdvReac Type Severity Reaction Status Date / Time No Known Allergies (No Known Allergy Verified 08/25/24 08:40 Allergies*) Review of Systems Review of Systems: all other systems are reviewed and are negative Constitutional: Reports as per HPI and Reports no additional constitutional complaints Eyes: Reports as per HPI and Reports no additional eye complaints Reports system reviewed and no additional complaints, except as documented Cardiovascular: Reports as per HPI and Reports no additional cardiovascular complaints Respiratory: Reports as per HPI and Reports no additional respiratory complaints Gastrointestinal: Reports as per HPI and Reports no additional gastrointestinal complaints Genitourinary: Reports no additional female genitourinary complaints Musculoskeletal: Reports no additional musculoskeletal complaints Skin/Breast: Reports system reviewed and no additional complaints, except as docu Psychiatric: Reports no additional psychiatric complaints Endocrine: Reports no additional endocrine complaints Hematologic/Lymphatic: Reports no additional hematologic/lymphatic complaints Allergic/Immunologic: Reports no additional allergic/immunologic complaints Reports system reviewed and no additional complaints, except as documented and Reports Abnormal speech present COUNT INCLUDES THE [facility] Past Medical History Medical History Habitual alcohol use COVID-19 Healthy adult Healthy adolescent Surgical History History of left knee surgery Family History Family History Father HTN (hypertension) Mother No problems noted. Maternal Grandmother No problems noted. Maternal Grandfather Diabetes Son No problems noted. Daughter No problems noted. Daughter No problems noted. Paternal Grandfather Diabetes Social History Social History Housing: Apartment Alcohol intake: current Alcohol intake frequency: a few times a week Alcohol type: beer Patient Tobacco Use Status: Never used Tobacco e-Cigarette/Vaping Use: Never Used Second Hand Smoke Exposure: No service: No Current occupational status: employed Current occupation: [employer] Current occupational exposures/hazards: No Cognitive needs: No Hearing needs: No Vision needs: No Physical Exam Vital Signs: Vital Signs: Last Vital Signs Temp 98.6 F 08/25/24 09:24 Pulse 64 08/25/24 09:24 Resp 15 08/25/24 09:24 BP 148/63 H 08/25/24 09:24 Pulse Ox 100 08/25/24 09:24 O2 Del Method Room Air 08/25/24 09:24 BMI result Body Mass Index 33.3 Vital signs have been reviewed and appear to be correct. Blood pressure elevated. Heart rate normal. Respiratory rate normal. Temperature normal. Oxygen saturation normal. Appearance: Alert. Oriented X3. No acute distress. Head: Normal external exam. Normocephalic. Atraumatic. No Ko signs noted. No raccoon eyes noted Eyes: Bilateral conjunctival injection with exudate, Eyelids normal. ENT: left TM erythema, no bulging. Pharynx normal. Uvula midline. Moist mucous membranes. No trismus noted. No drooling noted. No muffled voice noted. Neck: Normal inspection. Neck supple. FROM. No adenopathy. Thyroid Normal. No meningeal signs. No neck mass noted. CVS: Normal heart rate and rhythm. Heart sound normal. No murmurs noted. Pulses normal throughout. Respiratory: No respiratory distress. Painless inspiration. Breath sounds normal. No wheezes/rales/rhonchi noted. Chest nontender. No accessory muscle usage noted or decreased air movement noted. Abdomen: Soft and nontender. Bowel sounds normal in all 4 quadrants. No distention noted. No organomegaly noted. No visible injury noted. Back: No CVA tenderness. Full range of motion noted. Skin: Skin warm and dry. Normal skin color. Normal skin turgor. No rashes/lesions/lacerations noted. Extremities: No lower extremity edema. Extremities exhibit normal range of motion. Extremities nontender. Neuro: Oriented X 3. Cranial nerve exam: II-XII are grossly intact No motor deficit. No sensory deficit. Reflexes normal. Course Reevaluation(s) Reevaluation #1: left otitis media and bilateral conjunctivitis Will start on Augmentin, erythromycin. Time: 09:40 Medications Administered Discontinued Medications Generic Name Dose Route Start Last Admin Trade Name Freq PRN Reason Stop Dose Admin Amoxicillin/Clavulanate Potassium 875 mg 08/25/24 09:00 08/25/24 09:13 Amoxicillin/Potassium Clav 875 Mg Tablet PO 08/25/24 09:01 875 mg ONCE ONE Administration Medical Decision Making Differential Diagnosis Differential Diagnoses: The differential diagnosis associated with the presentation includes ( Upper respiratory infection, conjunctivitis, sinusitis, pharyngitis, otitis media.) Admission/Observation Consideration of admission/observation: Escalation of care including admission/observation considered Discharge Plan Discharge Clinical Impression: Acute left otitis media, Conjunctivitis Patient Disposition: Home, Self-Care Instructions: Ear Infection (ED), Conjunctivitis (ED) Prescriptions: New amoxicillin-pot clavulanate 875-125 mg tablet 1 tab PO BID Qty: 14 0RF erythromycin 5 mg/gram (0.5 %) ointment 1 appl ophthalmic (eye) TID Qty: 50 0RF Rx Instructions: apply to both eyes for 5 days No Action amlodipine 5 mg tablet 5 mg PO DAILY Qty: 90 1RF Referrals: Brittany Oden MD [Primary Care Provider, Internal Medicine] Print Language: Kiswahili
[2024-08-25 09:33] VITALS: BP 148/63; PULSE 64; RESP 15; TEMP 37; O2SAT 100
== END 2024-08-25 09:37 | disposition home or self-care (01) ==
LOC: HO.ED 09:36
PROVIDERS: Emergency Provider Emergency Medicine; PCP Internal Medicine
DX: H66.92 Otitis media, unspecified, left ear (principal); H10.9 Unspecified conjunctivitis; H92.02 Otalgia, left ear; R09.89 Other specified symptoms and signs involving the circulatory and respiratory systems; H57.13 Ocular pain, bilateral; R05.9 Cough, unspecified
CPT/HCPCS: 99283; 99284